=== PATIENT | male | born 1950 | race Caucasian/White ===

== ENCOUNTER 2016-07-14 15:15 | Emergency (ER) | payer MEDICARE, SELFPAY ==
[~2016-07-14 15:15] MED LIST: Sodium Chloride 0.9% 1,000 ML BAG ONE
[2016-07-14] MEDS ORDERED: Ketorolac Tromethamine 30 MG/ML VIAL ONE (16:33)
[2016-07-14] MEDS ORDERED: Ondansetron HCl/PF 4 MG/2 ML Vial ONE (16:33)
[2016-07-14] MEDS ORDERED: Fentanyl 100 MCG/2 ML VIAL ONE (16:33)
[2016-07-14 16:51] LABS: #Basophils 0.2 thou/uL (0.0-0.2); #Eosinphils 0.2 thou/uL (0.0-0.7); #Lymphocytes 2.1 thou/uL (1.20-3.40); #Neutrophils 10.3 thou/uL (1.40-6.50); %Basophils 1.3 % (0.0-1.0); %Eosinophils 1.5 % (0.0-10.0); %Lymphocytes 15.4 % (21.0-51.0); %Monocytes 6.9 % (0.0-10.0); %Neutrophils 74.8 % (42.0-75.0); Hemoglobin 13.5 g/dL (14.0-18.0); Mean Corpuscular HGB CONC 33.6 g/dL (32.0-36.0); Mean Corpuscular Hemoglobin 28.5 pg (27.0-31.0); Mean Corpuscular Volume 84.9 fl (80.0-94.0); Mean Platelet Volume 8.8 fL (7.4-10.4); Platelet Count 227 thou/uL (130-400); RBC Distribution Width 12.6 % (11.5-14.5); Red Blood Cell (RBC) Count 4.74 mill/uL (4.70-6.10); White Blood Cell (WBC) Count 13.8 thou/uL (4.8-10.8)
[2016-07-14 17:01] LABS: CKMB 1.2 ng/mL (0-6.6); Troponin I Less than 0.010 ng/mL (< 0.028)
[2016-07-14 17:08] LABS: Amylase 84 U/L (25-125); Anion Gap 23 mmol/L (10-20); BUN (Urea Nitrogen) 30 mg/dL (8.4-25.7); Calc. Creatinine Clearance 0 mL/min (70-130); Calcium 9.3 mg/dL (7.8-10.44); Carbon Dioxide 19 mmol/L (23-31); Chloride 104 mmol/L (98-107); Estimated GFR-MDRD 31; Lipase 80 U/L (8-78); Potassium 4.5 mmol/L (3.5-5.1); Sodium 141 mmol/L (136-145)
[2016-07-14 17:09] LABS: Glucose 292 mg/dL (80-115)
--- NOTE | 2016-07-14 18:09 | ERRECORD ---
[facility] EMERGENCY RECORD HPI ABDOMINAL PAIN (15:49 RWAG) CHIEF COMPLAINT: Patient presents for evaluation of abdominal pain, Patient presents for evaluation of "after eating, better after vomiting, then returns". HISTORIAN: History provided by patient. LOCATION MALE: Symptoms are localized, most severe in the right lower quadrant. QUALITY: Pain is sharp in nature. SEVERITY: Maximum severity of symptoms moderate, Currently symptoms are moderate, Maximum severity of pain rated as 10/10, Current severity of pain rated as 10/10. TIME COURSE: Sudden onset of symptoms, one hour ago. ASSOCIATED WITH: Associated with nausea, Associated with vomiting. RELIEVED BY: Patient's condition relieved by nothing. EXACERBATED BY: Patient's condition exacerbated by nothing. ROS (15:51 RWAG) CONSTITUTIONAL: Negative constitutional review of systems. EYES: Negative eye review of systems. ENT: Negative ears, nose, throat review of systems. CARDIOVASCULAR: Negative cardiovascular review of systems. RESPIRATORY: Negative respiratory review of systems. GI: Historian reports nausea, reports vomiting. GENITOURINARY MALE: Negative genitourinary review of systems. MUSCULOSKELETAL: Negative musculoskeletal review of systems. SKIN: Negative skin review of systems. NEUROLOGIC: Negative neurologic review of systems. ENDOCRINE: Negative endocrine review of systems. HEMO/LYMPHATIC: Normal hematologic/lymphatic system review. ALLERGIC/IMMUNOLOGIC: Normal allergy/immunologic system review. PSYCHIATRIC: Negative psychiatric review of systems. NOTES: All systems reviewed, negative except as described above. PAST MEDICAL HISTORY (15:46 [facility]) MEDICAL HISTORY: Flu vaccine up to date, Tetanus immunization up to date, Pneumococcal vaccine up to date, Past medical history includes cardiac history, coronary artery disease, arrhythmia, atrial fibrillation, Past medical history includes history of diabetes, Type II, Past medical history includes history of hypertension. kidney disease. MALE SURGICAL HISTORY: heart ablation left knee eye lasik bilateral, Surgical history of tonsillectomy. PSYCHIATRIC HISTORY: No previous psychiatric history. SOCIAL HISTORY: Lives at home, with family, Patient has no smoking history, Patient drinks socially, rarely, Patient denies drug use. &a-1R&a+25V*p+0X*q8980T*c202B*c15G*c2P*p-0X&a-25V&a+1R Name: Hayden Baptiste : 1950 M65 MedRec: [id number] AcctNum: [id number] Prepared: Hanane Jul 30, 2016 06:15 by Interface Page 1 of 4 pMD [facility] EMERGENCY RECORD KNOWN ALLERGIES acetaminophen (Unconfirmed): Reaction: Rash cinnamon Tylenol CURRENT MEDICATIONS lisinopril-hydrochlorothiazide: TABLET : Strength - 20 mg-12.5 mg : ORAL Patient Dose: 1 tab(s) Oral once a day. (15:42 CJEF) TRUJEO- DM MEDICATION: Patient Dose: 24 units Subcutaneous once a day. (15:43 CJEF) atorvastatin: TABLET : Strength - 40 mg : ORAL Patient Dose: 40 mg Oral once a day. (15:44 CJEF) aspirin: TABLET : Strength - 81 mg : ORAL Patient Dose: 325 mg Oral once a day. (15:44 CJEF) NIFEdipine: TABLET, EXTENDED RELEASE : Strength - 60 mg : ORAL Patient Dose: 60 mg Oral once a day. (15:45 CJEF) VITAL SIGNS VITAL SIGNS: BP: 181/75, Pulse: 86, Resp: 18, Temp: 97.3 (Oral), Pain: 10, O2 sat: 99 on Room Air, Time: 07/14/2016 15:39. (15:39 CJEF) BP: 141/109, Pulse: 79, Resp: 18, O2 sat: 98 on Room Air, Time: 07/14/2016 16:38. (16:38 CJEF) BP: 183/72, Pulse: 73, Resp: 18, Pain: 6, O2 sat: 97 on Room Air, Time: 07/14/2016 16:49. (16:49 CJEF) BP: 179/82, Pulse: 73, Resp: 15, Pain: 5, O2 sat: 94 on Room Air, Time: 07/14/2016 17:35. (17:35 CJEF) BP: 180/77, Pulse: 72, Resp: 15, Temp: 97.9 (Oral), Pain: 5, O2 sat: 93 on Room Air, Time: 07/14/2016 17:54. (17:54 CJEF) PHYSICAL EXAM (15:51 RWAG) CONSTITUTIONAL: Vital Signs Reviewed, Blood pressure, hypertensive. HEAD: Head exam normal. EYES: Eye exam normal. ENT: ENT exam normal. NECK: Neck exam normal. RESPIRATORY CHEST: Respiratory and chest exam normal. CARDIOVASCULAR: Cardiovascular assessment normal. ABDOMEN MALE: Abdominal exam normal. BACK: Back exam normal. UPPER EXTREMITY: Upper extremity exam normal. LOWER EXTREMITY: Lower extremity exam normal. NEURO: Neuro exam normal. SKIN: Skin exam normal. LYMPHATIC: Lymphatic exam normal. &a-1R&a+25V*p+0X*a7242B*c202B*c15G*c2P*p-0X&a-25V&a+1R Name: Hayden Baptiste : 1950 M65 MedRec: [id number] AcctNum: [id number] Prepared: Hanane Jul 30, 2016 06:15 by Interface Page 2 of 4 pMD [facility] EMERGENCY RECORD PSYCHIATRIC: Psychiatric exam normal. EKG INTERPRETATION (16:54 RWAG) 12 LEAD EKG INTERPRETATION: 12 lead EKG interpreted by Emergency Department Physician at time of study, 12 lead EKG shows normal sinus rhythm, Rate (beats per minute): 78, with no ectopics, No previous EKG available for comparison, Interpretation: normal EKG, T waves normal, [place] normal, Clinical impression: Normal EKG. RADIOLOGYINTERPRETATION (17:14 RWAG) ABDOMEN: Abdomen/pelvis CT scan, with contrast negative, no abdominal aortic aneurysm, no appendicitis, no diverticulitis, no kidney stones, no injuries, no mass, no obstruction, no free air, no hydronephrosis, solomon. small renal cysts. MEDICATION ADMINISTRATION SUMMARY Drug Name: sodium chloride 0.9 % intravenous, Dose Ordered: 1 L, Route: IV Fluid Infusion, Status: Given, Time: 17:15 07/14/2016, Drug Name: fentaNYL (PF) injection, Dose Ordered: 100 mcg, Route: IV Push, Status: Given, Time: 16:48 07/14/2016, Drug Name: ketorolac injection, Dose Ordered: 30 mg, Route: IV Push, Status: Given, Time: 16:48 07/14/2016, Drug Name: ondansetron HCl intravenous, Dose Ordered: 8 mg, Route: IV Push, Status: Given, Time: 16:48 07/14/2016, Detailed record available in Medication Service section. PROBLEM LIST No recorded problems DIAGNOSIS (17:17 RWAG) FINAL: PRIMARY: Abdominal Pain, ADDITIONAL: Nausea with vomiting. PRESCRIPTION Zofran ODT: TABLET,DISINTEGRATING : 8 mg : ORAL : Quantity: 1 Unit: tab(s) Route: ORAL Schedule: every 8 hours PRN Dispense: 12 Unit: tab(s) May substitute. Refills: No Refills . (17:16 RWAG) NOTES: No Refills. (17:16 RWAG) Ultram: TABLET : 50 mg : ORAL : Quantity: 2 Unit: tab(s) Route: ORAL Schedule: every 6 hours PRN Dispense: 20 Unit: tab(s) May substitute. Refills: No Refills . (17:17 RWAG) NOTES: No Refills. (17:17 RWAG) DISPOSITION PATIENT: Disposition Type: Discharge, Disposition: *Discharge Home, Disposition Transport: Car, Condition: Improved. (17:17 RWAG) Patient left the department. (18:01 CJEF) &a-1R&a+25V*p+0X*w1114S*c202B*c15G*c2P*p-0X&a-25V&a+1R Name: Hayden Baptiste : 1950 M65 MedRec: [id number] AcctNum: [id number] Prepared: Hanane Jul 30, 2016 06:15 by Interface Page 3 of 4 pMD [facility] EMERGENCY RECORD [place]: CJEF=KLEBER Pate, Cady RWAG=MD Chao, [place]ug[place] &a-1R&a+25V*p+0X*b5427E*c202B*c15G*c2P*p-0X&a-25V&a+1R Name: Hayden Baptiste : 1950 M65 MedRec: [id number] AcctNum: [id number] Prepared: Hanane Jul 30, 2016 06:15 by Interface Page 4 of 4 pMD MTDD
--- NOTE | 2016-07-14 18:15 | PICIS ---
[facility] EMERGENCY RECORD TRIAGE (15:41 CJEF) TRIAGE NOTES: PT REPORTS THAT HE FINISHED EATING AND STARTED HAVING CRAMPING TO THE RIGHT ABD AND STARTED VOMITING. PT REPORTS THAT HE HAS BEEN VOMITING SINCE THEN. PT REPORTS THAT HIS PAIN IS STARTING TO GET BETTER. STATES THAT THE ONLY DIFFERENCE IN FOOD FROM THE NON-SICK , WAS TARTAR SAUCE AND PT STATES THAT HE IS VOMITING WHITE. (15:41 CJEF) PATIENT: NAME: Hayden Baptiste, AGE: 65, GENDER: male, : Sun 1950, TIME OF GREET: SunJul 14, 2016 15:16, PREFERRED LANGUAGE: Irish, ETHNICITY: Not or , ECODE BILLING MAP: [facility], SSN: [id number], Zip Code: [address], KG WEIGHT: [phone], PHONE: , , , PERSON ID: [id number], PCP: Melina ROMO RANY. (15:41 CJEF) COMPLAINT: R SIDE PAIN,VOMITING. (15:41 CJEF) ADMISSION: URGENCY: 3 Urgent, ADMISSION SOURCE: Home, TRANSPORT: Walk-in, BED: TRIAGE. (15:41 CJEF) ASSESSMENT: Assessment: RIGHT SIDE ABD PAIN WITH VOMITIING. (15:46 CJEF) PAIN: Patient complains of pain described as, Location RT ABDOMEN. (15:46 CJEF) IMMUNIZATIONS: Flu vaccine up to date, Tetanus immunization up to date, Pneumococcal vaccine up to date. (15:46 CJEF) SIRS SCORING: Heart Rate 55-109 (0), Temp range 96.8-101.1 (0), respiratory rate 12-24 (0), Mental Status altered: no (0), Infection or Suspected Infection: No. (15:46 CJEF) TRIAGE SCREENING: Patient denies suicidal ideation, Patient denies presence of domestic violence. (15:46 CJEF) PROVIDERS: TRIAGE NURSE: Cady Pate RN. (15:41 CJEF) VITAL SIGNS: BP 181/75, Pulse 86, Resp 18, Temp 97.3, (Oral), Pain 10, O2 Sat 99, on Room Air, Time 07/14/2016 15:39. (15:39 CJEF) PREVIOUS VISIT ALLERGIES: TYLENOL. (15:41 CJEF) TYLENOL. (15:46 CJEF) KNOWN ALLERGIES acetaminophen (Unconfirmed): Reaction: Rash cinnamon Tylenol CURRENT MEDICATIONS lisinopril-hydrochlorothiazide: TABLET : Strength - 20 mg-12.5 mg : ORAL Patient Dose: 1 tab(s) Oral once a day. (15:42 CJEF) TRUJEO- DM MEDICATION: Patient Dose: 24 units Subcutaneous once a day. (15:43 CJEF) atorvastatin: TABLET : Strength - 40 mg : ORAL Patient Dose: 40 mg Oral once a day. (15:44 CJEF) aspirin: &a-1R&a+25V*p+0X*u2328U*c202B*c15G*c2P*p-0X&a-25V&a+1R Name: Hayden Baptiste : 1950 M65 MedRec: [id number] AcctNum: [id number] Prepared: Hanane Jul 30, 2016 06:21 by Interface Page 1 of 12 pMD [facility] EMERGENCY RECORD TABLET : Strength - 81 mg : ORAL Patient Dose: 325 mg Oral once a day. (15:44 CJEF) NIFEdipine: TABLET, EXTENDED RELEASE : Strength - 60 mg : ORAL Patient Dose: 60 mg Oral once a day. (15:45 CJEF) VITAL SIGNS VITAL SIGNS: BP: 181/75, Pulse: 86, Resp: 18, Temp: 97.3 (Oral), Pain: 10, O2 sat: 99 on Room Air, Time: 07/14/2016 15:39. (15:39 CJEF) BP: 141/109, Pulse: 79, Resp: 18, O2 sat: 98 on Room Air, Time: 07/14/2016 16:38. (16:38 CJEF) BP: 183/72, Pulse: 73, Resp: 18, Pain: 6, O2 sat: 97 on Room Air, Time: 07/14/2016 16:49. (16:49 CJEF) BP: 179/82, Pulse: 73, Resp: 15, Pain: 5, O2 sat: 94 on Room Air, Time: 07/14/2016 17:35. (17:35 CJEF) BP: 180/77, Pulse: 72, Resp: 15, Temp: 97.9 (Oral), Pain: 5, O2 sat: 93 on Room Air, Time: 07/14/2016 17:54. (17:54 CJEF) NURSING ASSESSMENT: ABDOMEN (15:50 CJEF) CONSTITUTIONAL: Complex assessment performed, Patient arrives ambulatory, Gait steady, History obtained from patient, Patient appears, generally ill, Patient cooperative, Patient alert, Oriented to person, place and time, Skin warm, Skin dry, Skin normal in color, Mucous membranes pink, Mucous membranes moist, Patient is well-groomed, PT REPORTS THAT HE FINISHED EATING AND STARTED HAVING CRAMPING TO THE RIGHT ABD AND STARTED VOMITING. PT REPORTS THAT HE HAS BEEN VOMITING SINCE THEN. PT REPORTS THAT HIS PAIN IS STARTING TO GET BETTER. STATES THAT THE ONLY DIFFERENCE IN FOOD FROM THE NON-SICK , WAS TARTAR SAUCE AND PT STATES THAT HE IS VOMITING WHITE. PAIN: aching pain, to the right upper quadrant, to the right lower quadrant, on a scale 0-10 patient rates pain as 10. ABDOMEN: Abdomen assessment findings include abdomen symmetrical, Abdomen soft, tender, to the right upper quadrant, to the right lower quadrant, Bowel sound normal, Associated with nausea, Associated with vomiting, currently. NOTES: Patient tolerated procedure well. SAFETY: Side rails up, Cart/Stretcher in lowest position, Family at bedside, Call light within reach, Hospital ID band on. NURSING ASSESSMENT: FALL RISK (15:59 CJEF) FALL RISK: Total score 0, No risk for fall. [place] II FALL RISK: Able to rise in a single movement; no loss of balance with steps(0), Total score 0, Score less than 5. Patient not high risk for falls. NURSING ASSESSMENT: SKIN (15:59 CJEF) SKIN: Skin assessment findings include skin warm, Skin dry, Skin &a-1R&a+25V*p+0X*o7482J*c202B*c15G*c2P*p-0X&a-25V&a+1R Name: Hayden Baptiste : 1950 M65 MedRec: [id number] AcctNum: [id number] Prepared: Hanane Jul 30, 2016 06:21 by Interface Page 2 of 12 pMD [facility] EMERGENCY RECORD normal in color. СВЕТЛАНА SCALE: (4) Sensory perception has no impairment, (4) Skin is rarely moist, (4) Patient walks frequently, (4) No mobility limitations, (3) Adequate nutrition, (3) Patient has no apparent problem moving. NOTES: Patient tolerated procedure well. SAFETY: Side rails up, Cart/Stretcher in lowest position, Family at bedside, Call light within reach, Hospital ID band on. NURSING PROCEDURE: BEDSIDE SIRS TESTING (17:06 CJEF) SCORES: Heart Rate 55-109 (0), Temp range 96.8-101.1 (0), respiratory rate 12-24 (0), Latest WBC 3-14.9 (0), Mental Status altered: no (0), Yes, Infection or Suspected Infection. SIRS: Yes, Infection or Suspected Infection. NURSING PROCEDURE: CUSTOMER SUCCESS INTERN (16:25 CJEF) PATIENT IDENTIFIER: Patient actively involved in identification process, Patient's identity verified by patient stating name, Patient's identity verified by patient stating date. CUSTOMER SUCCESS INTERN: Cardiac monitoring indicated for N/V, Patient placed on director of cardiac cath lab, Heart rate: 79, showing normal sinus rhythm, Patient placed on non-invasive blood pressure monitor, Patient placed on continuous pulse oximetry, Adult/pediatric oxisensor applied. FOLLOW-UP: After procedure, alarms set and on, After procedure, patient tolerating monitoring. NOTES: Patient tolerated procedure well. SAFETY: Side rails up, Cart/Stretcher in lowest position, Family at bedside, Call light within reach, Hospital ID band on. NURSING PROCEDURE: DISCHARGE NOTE (18:00 CJEF) DISCHARGE: Patient discharged to home, ambulating without assistance, family driving, accompanied by //partner, Summary of Care printed/ provided, Patient requested and was provided an electronic copy of Discharge Instructions, Transition record given to patient, Discharge instructions given to patient, Discharge instructions given to , Simple or moderate discharge teaching performed, Prescriptions given and instructions on side effects given, Medication reconciliation form given, Above person(s) verbalized understanding of discharge instructions and follow-up care, Patient treated and evaluated by physician. BELONGINGS: Belongings remain with patient. NOTES: Patient tolerated procedure well. SAFETY: Side rails up, Cart/Stretcher in lowest position, Family at bedside, Call light within reach, Hospital ID band on. NURSING PROCEDURE: EKG CHART (16:35 CJEF) PATIENT IDENTIFIER: Patient actively involved in identification process, Patient's identity verified by patient stating name, Patient's identity verified by patient stating date. &a-1R&a+25V*p+0X*u9594D*c202B*c15G*c2P*p-0X&a-25V&a+1R Name: Hayden Baptiste : 1950 M65 MedRec: [id number] AcctNum: [id number] Prepared: Hanane Jul 30, 2016 06:21 by Interface Page 3 of 12 pMD [facility] EMERGENCY RECORD EKG: EKG indicated for N/V, 12 lead EKG performed on the left chest, done by MISBAH SHAHID, first EKG. FOLLOW-UP: After procedure, EKG for interpretation given to Dr. GUIDRY. NOTES: Patient tolerated procedure well. SAFETY: Side rails up, Cart/Stretcher in lowest position, Family at bedside, Call light within reach, Hospital ID band on. NURSING PROCEDURE: IV PATIENT IDENITIFIER: Patient actively involved in identification process, Patient's identity verified by patient stating name, Patient's identity verified by patient stating date. (16:35 CJEF) IV SITE 1: IV therapy indicated for hydration, IV therapy indicated for medication administration, IV established, to the left antecubital, using an 18 gauge catheter, in one attempt, IV site prepped with CHLORAPREP, Saline lock established, Flushed with normal saline (mls): 10, Labs drawn at time of placement, labeled in the presence of the patient and sent to lab. (16:35 CJEF) FOLLOW-UP SITE 1: After procedure, sterile transparent dressing applied. (16:35 CJEF) After procedure, 2x2 dressing applied, IV discontinued, due to patient being discharged, catheter intact. (17:55 CJEF) NOTES: Patient tolerated procedure well. (16:35 CJEF) SAFETY: Side rails up, Cart/Stretcher in lowest position, Family at bedside, Call light within reach, Hospital ID band on. (16:35 CJEF) NURSING PROCEDURE: NURSE NOTES NURSES NOTES: Patient in no apparent distress, Patient resting quietly, Notes: PT RESTING IN BED QUIETLY WITH FAMILY AT BEDSIDE. NO DISTRESS NOTED. (16:37 CJEF) Patient in no apparent distress, Patient resting quietly, Notes: PT RESTING IN BED QUIETLY WITH FAMILY AT BEDSIDE. NO DISTRESS NOTED. (17:34 [facility]) Notes: PT WAS UNABLE TO PROVIDE URINE SAMPLE. (18:01 [facility]) NURSING PROCEDURE: TRANSPORT TO TESTS (15:55 [facility]) PATIENT IDENTIFIER: Patient actively involved in identification process, Patient's identity verified by patient stating name, Patient's identity verified by patient stating date. TRANSPORT TO TESTS: Transport indicated to facilitate diagnosis, Patient transported to CT scan, via cart, Accompanied by x-ray security systems technician. NOTES: Patient tolerated procedure well. SAFETY: Side rails up, Cart/Stretcher in lowest position, Family at bedside, Call light within reach, Hospital ID band on. ORDER DETAILS &a-1R&a+25V*p+0X*z8525H*c202B*c15G*c2P*p-0X&a-25V&a+1R Name: Hayden Baptiste : 1950 M65 MedRec: [id number] AcctNum: [id number] Prepared: Hanane Jul 30, 2016 06:21 by Interface Page 4 of 12 pMD [facility] EMERGENCY RECORD Order Name: Amylase, Status: Active, Time: 15:43 07/14/2016, User: ANDRE, - Ordered for: MD Guidry Richard, - Entered by: MD Guidry Richard - Sonu Jul 14, 2016 15:43, - Quantity: 1, Order Name: Basic Metabolic Panel, Status: Active, Time: 15:43 07/14/2016, User: ANDRE, - Ordered for: MD Guidry Richard, - Entered by: MD Guidry Richard - Sonu Jul 14, 2016 15:43, - Quantity: 1, Order Name: CUSTOMER SUCCESS INTERN ED, Status: Done, Time: 16:37 07/14/2016, User: FLO, - Ordered for: MD Guidry Richard, - Entered by: KLEBER Pate Cassie - Sonu Jul 14, 2016 16:37, - Quantity: 1, Order Name: Cardiac Profile w/CKMB & Troponin - I, Status: Active, Time: 15:43 07/14/2016, User: ANDRE, - Ordered for: MD Guidry Richard, - Entered by: MD Guidry Richard - SunJul 14, 2016 15:43, - Quantity: 1, Order Name: CBC with Differential, Status: Active, Time: 15:43 07/14/2016, User: ANDRE, - Ordered for: MD Guidry Richard, - Entered by: MD Guidry Richard - SunJul 14, 2016 15:43, - Quantity: 1, Order Name: CT Abdomen Pelvis WO Con, Status: Active, Time: 15:43 07/14/2016, User: ANDRE, - Ordered for: MD Guidry Richard, - Entered by: MD Guidry Richard - SunJul 14, 2016 15:43, - Quantity: 1, Order Name: EKG 12 Lead in Emergency Room, Status: Active, Time: 15:43 07/14/2016, User: ANDRE, - Ordered for: MD Guidry Richard, - Entered by: MD Guidry Richard - SunJul 14, 2016 15:43, - Quantity: 1, Order Name: Lipase, Status: Active, Time: 15:43 07/14/2016, User: ANDRE, - Ordered for: MD Guidry Richard, - Entered by: MD Guidry Richard - SunJul 14, 2016 15:43, - Quantity: 1, Order Name: SALINE LOCK, Status: Done, Time: 16:36 07/14/2016, User: FLO, - Ordered for: MD Guidry Richard, - Entered by: MD Guidry Richard - SunJul 14, 2016 15:43, - Quantity: 1, Order Name: Urinalysis w/ Rflx Microscopic, Status: Canceled, Time: 18:01 07/14/2016, User: FLO, - Ordered for: MD Guidry Richard, - Entered by: MD Guidry Richard - SunJul 14, 2016 15:43, - Quantity: 1. &a-1R&a+25V*p+0X*u0210S*c202B*c15G*c2P*p-0X&a-25V&a+1R Name: Hayden Baptiste : 1950 M65 MedRec: [id number] AcctNum: [id number] Prepared: Hanane Jul 30, 2016 06:21 by Interface Page 5 of 12 pMD [facility] EMERGENCY RECORD MEDICATION ADMINISTRATION SUMMARY Drug Name: sodium chloride 0.9 % intravenous, Dose Ordered: 1 L, Route: IV Fluid Infusion, Status: Given, Time: 17:15 07/14/2016, Drug Name: fentaNYL (PF) injection, Dose Ordered: 100 mcg, Route: IV Push, Status: Given, Time: 16:48 07/14/2016, Drug Name: ketorolac injection, Dose Ordered: 30 mg, Route: IV Push, Status: Given, Time: 16:48 07/14/2016, Drug Name: ondansetron HCl intravenous, Dose Ordered: 8 mg, Route: IV Push, Status: Given, Time: 16:48 07/14/2016, Detailed record available in Medication Service section. MEDICATION SERVICE fentaNYL (PF) injection: Order: fentaNYL (PF) injection (fentanyl citrate/preservative free) - Dose: 100 mcg : IV Push Schedule: Now Ordered by: Refugio Guidry MD Entered by: Refugio Guidry MD SunJul 14, 2016 15:44 , Acknowledged by: Carlyn Craig RN SunJul 14, 2016 16:31 Documented as given by: Cady Pate RN SunJul 14, 2016 16:48 Patient, Medication, Dose, Route and Time verified prior to administration. Amount given: 100MCG, IV SITE #1 IVP, subsequent different medication, Slowly, Awake and alert- acceptable, Connections checked prior to administration, Line traced prior to administration, Catheter placement confirmed via flush prior to administration, IV site without signs or symptoms of infiltration during medication administration, No swelling during administration, No drainage during administration, IV flushed after administration, Correct patient, time, route, dose and medication confirmed prior to administration, Patient advised of actions and side-effects prior to administration, Allergies confirmed and medications reviewed prior to administration, Patient tolerated procedure well, Patient in position of comfort, Side rails up, Cart in lowest position, Family at bedside. : Follow Up : Response assessment performed, No signs or symptoms of allergic reaction noted, Decreased pain, Advised not to ambulate without assistance, Patient in position of comfort, Side rails up, Cart in lowest position, Family at bedside. (17:34 [facility]) ketorolac injection: Order: ketorolac injection (ketorolac tromethamine) - Dose: 30 mg : IV Push Schedule: Now Ordered by: Refugio Guidry MD Entered by: Refugio Guidry MD SunJul 14, 2016 15:44 , Acknowledged by: Carlyn Craig RN SunJul 14, 2016 16:31 Documented as given by: Cady Pate RN SunJul 14, 2016 16:48 Patient, Medication, Dose, Route and Time verified prior to administration. &a-1R&a+25V*p+0X*q1102V*c202B*c15G*c2P*p-0X&a-25V&a+1R Name: Hayden Baptiste : 1950 M65 MedRec: [id number] AcctNum: [id number] Prepared: Hanane Jul 30, 2016 06:21 by Interface Page 6 of 12 pMD [facility] EMERGENCY RECORD Amount given: 30MG, IV SITE #1 IVP, subsequent different medication, Slowly, Awake and alert- acceptable, Connections checked prior to administration, Line traced prior to administration, Catheter placement confirmed via flush prior to administration, IV site without signs or symptoms of infiltration during medication administration, No swelling during administration, No drainage during administration, IV flushed after administration, Correct patient, time, route, dose and medication confirmed prior to administration, Patient advised of actions and side-effects prior to administration, Allergies confirmed and medications reviewed prior to administration, Patient tolerated procedure well, Patient in position of comfort, Side rails up, Cart in lowest position, Family at bedside. : Follow Up : Response assessment performed, No signs or symptoms of allergic reaction noted, Advised not to ambulate without assistance, Patient in position of comfort, Side rails up, Cart in lowest position, Family at bedside. (17:34 [facility]) ondansetron HCl intravenous: Order: ondansetron HCl intravenous (ondansetron HCl) - Dose: 8 mg : IV Push Schedule: Now Ordered by: Refugio Guidry MD Entered by: Refugio Guidry MD SunJul 14, 2016 15:45 , Acknowledged by: Carlyn Craig RN SunJul 14, 2016 16:31 Documented as given by: Cady Pate RN SunJul 14, 2016 16:48 Patient, Medication, Dose, Route and Time verified prior to administration. Amount given: 8MG, IV SITE #1 IVP, initial medication, Slowly, Awake and alert- acceptable, Connections checked prior to administration, Line traced prior to administration, Catheter placement confirmed via flush prior to administration, IV site without signs or symptoms of infiltration during medication administration, No swelling during administration, No drainage during administration, IV flushed after administration, Correct patient, time, route, dose and medication confirmed prior to administration, Patient advised of actions and side-effects prior to administration, Allergies confirmed and medications reviewed prior to administration, Patient tolerated procedure well, Patient in position of comfort, Side rails up, Cart in lowest position, Family at bedside. : Follow Up : Response assessment performed, No signs or symptoms of allergic reaction noted, Decreased vomiting, Decreased nausea, Advised not to ambulate without assistance, Patient in position of comfort, Side rails up, Cart in lowest position, Family at bedside. (17:35 [facility]) sodium chloride 0.9 % intravenous: Order: sodium chloride 0.9 % intravenous (0.9 % sodium chloride) - Dose: 1 L : IV Fluid Infusion Schedule: Now Ordered by: Refugio Guidry MD Entered by: Refugio Guidry MD SunJul 14, 2016 17:11 , Acknowledged by: Carlyn Craig RN SunJul 14, 2016 17:15 Documented as given by: Cady Pate RN SunJul 14, 2016 17:15 &a-1R&a+25V*p+0X*b6711G*c202B*c15G*c2P*p-0X&a-25V&a+1R Name: Hayden Baptiste : 1950 M65 MedRec: [id number] AcctNum: [id number] Prepared: Hanane Jul 30, 2016 06:21 by Interface Page 7 of 12 pMD [facility] EMERGENCY RECORD Patient, Medication, Dose, Route and Time verified prior to administration. Amount given: 1 L, IV SITE #1 IV fluids established for hydration, IV SITE #1 into left antecubital, IV SITE #1 1st bag hung, IV SITE #1 bolus of 1000 ml established, via primary tubing, Awake and alert- acceptable, Connections checked prior to administration, Line traced prior to administration, Catheter placement confirmed via flush prior to administration, IV site without signs or symptoms of infiltration during medication administration, No swelling during administration, No drainage during administration, IV flushed after administration, Correct patient, time, route, dose and medication confirmed prior to administration, Patient advised of actions and side-effects prior to administration, Allergies confirmed and medications reviewed prior to administration, Patient tolerated procedure well, Patient in position of comfort, Side rails up, Cart in lowest position, Family at bedside. : Follow Up : Response assessment performed, No signs or symptoms of allergic reaction noted, _IV SITE #1:_, IV fluid infusion discontinued, on SunJul 14, 2016 17:54, 40 minutes, ., Total amount infused: 1 L, Advised not to ambulate without assistance, Patient in position of comfort, Side rails up, Cart in lowest position, Family at bedside. (17:54 [facility]) HPI ABDOMINAL PAIN (15:49 RW) CHIEF COMPLAINT: Patient presents for evaluation of abdominal pain, Patient presents for evaluation of "after eating, better after vomiting, then returns". HISTORIAN: History provided by patient. LOCATION MALE: Symptoms are localized, most severe in the right lower quadrant. QUALITY: Pain is sharp in nature. SEVERITY: Maximum severity of symptoms moderate, Currently symptoms are moderate, Maximum severity of pain rated as 10/10, Current severity of pain rated as 10/10. TIME COURSE: Sudden onset of symptoms, one hour ago. ASSOCIATED WITH: Associated with nausea, Associated with vomiting. RELIEVED BY: Patient's condition relieved by nothing. EXACERBATED BY: Patient's condition exacerbated by nothing. ROS (15:51 RW) CONSTITUTIONAL: Negative constitutional review of systems. EYES: Negative eye review of systems. ENT: Negative ears, nose, throat review of systems. CARDIOVASCULAR: Negative cardiovascular review of systems. RESPIRATORY: Negative respiratory review of systems. GI: Historian reports nausea, reports vomiting. GENITOURINARY MALE: Negative genitourinary review of systems. MUSCULOSKELETAL: Negative musculoskeletal review of systems. &a-1R&a+25V*p+0X*o9985X*c202B*c15G*c2P*p-0X&a-25V&a+1R Name: Hayden Baptiste : 1950 M65 MedRec: [id number] AcctNum: [id number] Prepared: Hanane Jul 30, 2016 06:21 by Interface Page 8 of 12 pMD [facility] EMERGENCY RECORD SKIN: Negative skin review of systems. NEUROLOGIC: Negative neurologic review of systems. ENDOCRINE: Negative endocrine review of systems. HEMO/LYMPHATIC: Normal hematologic/lymphatic system review. ALLERGIC/IMMUNOLOGIC: Normal allergy/immunologic system review. PSYCHIATRIC: Negative psychiatric review of systems. NOTES: All systems reviewed, negative except as described above. PAST MEDICAL HISTORY (15:46 CJ) MEDICAL HISTORY: Flu vaccine up to date, Tetanus immunization up to date, Pneumococcal vaccine up to date, Past medical history includes cardiac history, coronary artery disease, arrhythmia, atrial fibrillation, Past medical history includes history of diabetes, Type II, Past medical history includes history of hypertension. kidney disease. MALE SURGICAL HISTORY: heart ablation left knee eye lasik bilateral, Surgical history of tonsillectomy. PSYCHIATRIC HISTORY: No previous psychiatric history. SOCIAL HISTORY: Lives at home, with family, Patient has no smoking history, Patient drinks socially, rarely, Patient denies drug use. PHYSICAL EXAM (15:51 RW) CONSTITUTIONAL: Vital Signs Reviewed, Blood pressure, hypertensive. HEAD: Head exam normal. EYES: Eye exam normal. ENT: ENT exam normal. NECK: Neck exam normal. RESPIRATORY CHEST: Respiratory and chest exam normal. CARDIOVASCULAR: Cardiovascular assessment normal. ABDOMEN MALE: Abdominal exam normal. BACK: Back exam normal. UPPER EXTREMITY: Upper extremity exam normal. LOWER EXTREMITY: Lower extremity exam normal. NEURO: Neuro exam normal. SKIN: Skin exam normal. LYMPHATIC: Lymphatic exam normal. PSYCHIATRIC: Psychiatric exam normal. EVENTS TRANSFER: Triage to Emergency Triage. (SunJul 14, 2016 15:41 CJ) Emergency Triage to Main ED -04. (15:47 CJ) Emergency Main ED -04 to -05. (16:43 CJ) Removed from Emergency Main ED -05. (18:01 [facility]) RADIOLOGYINTERPRETATION (17:14 RW) ABDOMEN: Abdomen/pelvis CT scan, with contrast negative, no &a-1R&a+25V*p+0X*s1634K*c202B*c15G*c2P*p-0X&a-25V&a+1R Name: Hayden Baptiste : 1950 M65 MedRec: [id number] AcctNum: [id number] Prepared: Hanane Jul 30, 2016 06:21 by Interface Page 9 of 12 pMD [facility] EMERGENCY RECORD abdominal aortic aneurysm, no appendicitis, no diverticulitis, no kidney stones, no injuries, no mass, no obstruction, no free air, no hydronephrosis, solomon. small renal cysts. EKG INTERPRETATION (16:54 RWAG) 12 LEAD EKG INTERPRETATION: 12 lead EKG interpreted by Emergency Department Physician at time of study, 12 lead EKG shows normal sinus rhythm, Rate (beats per minute): 78, with no ectopics, No previous EKG available for comparison, Interpretation: normal EKG, T waves normal, [place] normal, Clinical impression: Normal EKG. PROBLEM LIST No recorded problems DIAGNOSIS (17:17 RWAG) FINAL: PRIMARY: Abdominal Pain, ADDITIONAL: Nausea with vomiting. DISPOSITION PATIENT: Disposition Type: Discharge, Disposition: *Discharge Home, Disposition Transport: Car, Condition: Improved. (17:17 RWAG) Patient left the department. (18:01 [facility]) INSTRUCTION (17:18 RWAG) DISCHARGE: ABDOMINAL PAIN, UNKOWN CAUSE, (MALE), VOMITING (8Y-ADULT). FOLLOWUP: Melina ROMO, [facility], [address] , [facility] [address], [phone], Follow up with Primary Care Physician in 2-3 days. SPECIAL: Follow-up with your PCP. PRESCRIPTION Zofran ODT: TABLET,DISINTEGRATING : 8 mg : ORAL : Quantity: 1 Unit: tab(s) Route: ORAL Schedule: every 8 hours PRN Dispense: 12 Unit: tab(s) May substitute. Refills: No Refills . (17:16 RW) NOTES: No Refills. (17:16 RWAG) Ultram: TABLET : 50 mg : ORAL : Quantity: 2 Unit: tab(s) Route: ORAL Schedule: every 6 hours PRN Dispense: 20 Unit: tab(s) May substitute. Refills: No Refills . (17:17 RWAG) NOTES: No Refills. (17:17 RWAG) IMAGING EKG: Image captured from scanner. (17:13 AWAT) *DISCHARGE INSTRUCTIONS RECEIPT: Image captured from scanner. (18:02 [facility]) Page 2 added. Image captured from scanner. (18:02 [facility]) *SUPPLY CHARGE SHEET: Image captured from scanner. (18:02 [facility]) &a-1R&a+25V*p+0X*f0690W*c202B*c15G*c2P*p-0X&a-25V&a+1R Name: Hayden Baptiste : 1950 M65 MedRec: [id number] AcctNum: [id number] Prepared: Hanane Jul 30, 2016 06:21 by Interface Page 10 of 12 pMD [facility] EMERGENCY RECORD ADMIN ([place] Jul 30, 2016 06:06 [facility]) DIGITAL SIGNATURE: MD Guidry Richard. RESULTS LABORATORY: CBC with Differential Collection DT: SunJul 14, 2016 16:43, *White Blood Cell (WBC) Count 13.8 - H thou/uL, Range (4.8-10.8), Red Blood Cell (RBC) Count 4.74 mill/uL, Range (4.70-6.10), *Hemoglobin 13.5 - L g/dL, Range (14.0-18.0), *Hematocrit 40.2 - L %, Range (42.0-52.0), Mean Corpuscular Volume 84.9 fl, Range (80.0-94.0), Mean Corpuscular Hemoglobin 28.5 pg, Range (27.0-31.0), Mean Corpuscular HGB CONC 33.6 g/dL, Range (32.0-36.0), RBC Distribution Width 12.6 %, Range (11.5-14.5), Platelet Count 227 thou/uL, Range (130-400), Mean Platelet Volume 8.8 fL, Range (7.4-10.4), %Neutrophils 74.8 %, Range (42.0-75.0), *%Lymphocytes 15.4 - L %, Range (21.0-51.0), %Monocytes 6.9 %, Range (0.0-10.0), %Eosinophils 1.5 %, Range (0.0-10.0), *%Basophils 1.3 - H %, Range (0.0-1.0), *#Neutrophils 10.3 - H thou/uL, Range (1.40-6.50), #Lymphocytes 2.1 thou/uL, Range (1.20-3.40), *#Monocytes 1.0 - H thou/uL, Range (0.11-0.59), #Eosinphils 0.2 thou/uL, Range (0.0-0.7), #Basophils 0.2 thou/uL, Range (0.0-0.2). (16:54 RWAG) Cardiac Profile w/CKMB & TropI Collection DT: SunJul 14, 2016 16:43, CKMB 1.2 ng/mL, Range (0-6.6), Troponin I Less than 0.010 ng/mL, Range (< 0.028), Reference Range , 0.00 - 0.028 ng/mL Negative 0.029 - 0.29 ng/mL , Indeterminate Greater or Equal to 0.3 ng/mL Strongly suggests OK , . (17:05 [facility]) Lipase Collection DT: SunJul 14, 2016 16:43, *Lipase 80 - H U/L, Range (8-78). (17:10 RWAG) Amylase Collection DT: SunJul 14, 2016 16:43, Amylase 84 U/L, Range (25-125). (17:10 RW) Basic Metabolic Panel Collection DT: SunJul 14, 2016 16:43, Sodium 141 mmol/L, Range (136-145), Potassium 4.5 mmol/L, Range (3.5-5.1), Chloride 104 mmol/L, Range (98-107), *Carbon Dioxide 19 - L mmol/L, Range (23-31), *Anion Gap 23 - H mmol/L, Range (10-20), *BUN (Urea Nitrogen) 30 - H mg/dL, Range (8.4-25.7), *Creatinine 2.14 - H mg/dL, Range (0.7-1.3), Estimated GFR-MDRD 31 , Reference Range for Estimated GFR: Greater than 90, mL/min/1.73 m2 &a-1R&a+25V*p+0X*v0235D*c202B*c15G*c2P*p-0X&a-25V&a+1R Name: Hayden Baptiste : 1950 M65 MedRec: [id number] AcctNum: [id number] Prepared: Hanane Jul 30, 2016 06:21 by Interface Page 11 of 12 pMD [facility] EMERGENCY RECORD NOTE: The MDRD equation has not been validated for use, with the elderly (over 70 years of age), women, patients with, serious comorbid condition or persons with extremes of body size, muscle, mass, or nutritional status. , *Glucose 292 - H mg/dL, Range (80-115), Calcium 9.3 mg/dL, Range (7.8-10.44). (17:10 RWAG) [place]jo: AWAT=KLEBER Cruz, Misbah CJEF=KLEBER Pate, Cady RWAG=MD Chao, Refugio &a-1R&a+25V*p+0X*m7058R*c202B*c15G*c2P*p-0X&a-25V&a+1R Name: Hayden Baptiste : 1950 M65 MedRec: [id number] AcctNum: [id number] Prepared: Hanane Jul 30, 2016 06:21 by Interface Page 12 of 12 pMD [facility] MEDICATION RECONCILIATION You were seen in the Emergency Department on: SunJul 14, 2016 KNOWN ALLERGIES acetaminophen (Unconfirmed): Reaction: Rash cinnamon Tylenol MEDICATIONS GIVEN WHILE IN THE EMERGENCY DEPARTMENT ketorolac injection (ketorolac tromethamine) - Dose: 30 milligram(s) : IV Push fentaNYL (PF) injection (fentanyl citrate/preservative free) - Dose: 100 microgram(s) : IV Push ondansetron HCl intravenous (ondansetron HCl) - Dose: 8 milligram(s) : IV Push sodium chloride 0.9 % intravenous (0.9 % sodium chloride) - Dose: 1 liter(s) : IV Fluid Infusion HOME MEDICATIONS CONTINUE PRESCRIBED aspirin : TABLET : Strength - 81 mg : ORAL Continue as prescribed Patient had been takin mg Oral once a day. atorvastatin : TABLET : Strength - 40 mg : ORAL Continue as prescribed Patient had been takin mg Oral once a day. lisinopril-hydrochlorothiazide : TABLET : Strength - 20 mg-12.5 mg : ORAL Continue as prescribed Patient had been takin tab(s) Oral once a day. NIFEdipine : TABLET, EXTENDED RELEASE : Strength - 60 mg : ORAL Continue as prescribed Patient had been takin mg Oral once a day. TRUJEO- DM MEDICATION Continue as prescribed Patient had been takin units Subcutaneous once a day. Notes from the emergency department Reviewed with patient PRESCRIPTIONS (2) &a-1R&a+25V*p+0X*p9579S*c202B*c15G*c2P*p-0X&a-25V&a+1R Name: Hayden Baptiste : 1950 M65 MedRec: [id number] AcctNum: [id number] Prepared: Hanane Jul 30, 2016 06:21 by Interface pMD [facility] MEDICATION RECONCILIATION Printed (2) Zofran ODT : TABLET,DISINTEGRATING : 8 mg : ORAL Quantity: 1, Unit: tab(s), Route: ORAL, Schedule: every 8 hours PRN, Dispense: 12 Unit: tab(s) &a-1R&a+25V*p+0X*g1961F*c202B*c15G*c2P*p-0X&a-25V&a+1R Name: Hayden Baptiste : 1950 M65 MedRec: [id number] AcctNum: [id number] Prepared: Hanane Jul 30, 2016 06:21 by Interface pMD [facility]
--- NOTE | 2016-07-14 18:52 | CT ---
CT ABDOMEN AND PELVIS WITHOUT IV CONTRAST 07/14/16 HISTORY: Cramping in right abdomen with vomiting. FINDINGS: Lack of intravenous contrast limits sensitivity for evaluation of the parenchymal organs. There are hypodense lesions seen in each kidney difficult to adequately characterize without IV contrast but t he majority appear to represent cysts. The largest hypodense cystic lesion in the superior pole left kidney measures 4.4 cm and does demonstrate fluid attenuation on this nonenhanced scan exam. The lung bases, liver, spleen, pancreas, bilateral adrenal glands and urinary bladder demonstrate a grossly normal nonenhanced CT appearance. There is colonic diverticulosis. The appendix is normal in caliber without CT findings to suggest appendicitis. The stomach is distended without fluid and particulate matter likely related to recent ingestion of a meal. Dense vascular calcification seen in the abdominal aorta and iliac arteries. Degenerative change noted in the spine. IMPRESSION: 1. Hypodense bilateral renal lesions, the majority of which most likely represent renal cysts. However, some of the lesions are too small to definitively characterize. 2. No renal or ureteral calculi are seen bilaterally, and there is no hydronephrosis. 3. No CT evidence of appendicitis. 4. Colonic diverticulosis. POS: ANGEL
[2016-07-14] MEDS ORDERED: Aspirin 325 MG TAB ONE (18:56)
[2016-07-14] MEDS ORDERED: Nitroglycerin 0.4 MG TAB 1 EACH ONE (18:56)
== END 2016-07-14 18:01 | disposition home or self-care (01) ==
LOC: MADERS 15:15
DX: R10.31 Right lower quadrant pain (principal); R11.2 Nausea with vomiting, unspecified; E11.9 Type 2 diabetes mellitus without complications; I10 Essential (primary) hypertension; I48.91 Unspecified atrial fibrillation; Z79.82 Long term (current) use of aspirin; Z79.899 Other long term (current) drug therapy
CPT/HCPCS: 74176; 80048; 82150; 82553; 83690; 84484; 85025; 93005; 96361; 96374; 96375; J1885; J2405; J3010; J7050

== ENCOUNTER 2017-02-12 08:18 | Outpatient (CLI) | payer MEDICARE ==
[2017-02-12 09:49] LABS: Anion Gap 17 mmol/L (10-20); BUN (Urea Nitrogen) 38 mg/dL (8.4-25.7); Calc. Creatinine Clearance 0 mL/min (70-130); Calcium 9.6 mg/dL (7.8-10.44); Carbon Dioxide 21 mmol/L (23-31); Chloride 111 mmol/L (98-107); Estimated GFR-MDRD 25; Glucose 101 mg/dL (80-115); Potassium 4.6 mmol/L (3.5-5.1); Sodium 144 mmol/L (136-145)
[2017-02-12 10:03] LABS: Bilirubin Negative (Negative); Blood, Urine Trace (Negative); Clarity Clear (Clear); Glucose, Urine (Dipstick) Negative (Negative); Leukocyte Negative (Negative); Nitrite Negative (Negative); Protein, Urine (Dipstick) 30 mg/dL (Neg-Trace); Urobilinogen 0.2 mg/dL (0.2-1.0); pH, Urine 5.5 (5.0-9.0)
== END 2017-02-12 08:19 | disposition home or self-care (01) ==
LOC: MADLAB 08:18
PROVIDERS: ATTEND Internal Medicine Nephrology
DX: I12.9 Hypertensive chronic kidney disease with stage 1 through stage 4 chronic kidney disease, or unspecified chronic kidney disease (principal); N18.3 Chronic kidney disease, stage 3 (moderate); E11.00 Type 2 diabetes mellitus with hyperosmolarity without nonketotic hyperglycemic-hyperosmolar coma (NKHHC); E11.22 Type 2 diabetes mellitus with diabetic chronic kidney disease; R80.9 Proteinuria, unspecified; E55.9 Vitamin D deficiency, unspecified
CPT/HCPCS: 36415; 80048; 81003

== ENCOUNTER 2021-02-03 22:31 | Emergency (ER) | payer MEDICARE ==
[2021-02-03 22:55] LABS: #Basophils 0.2 thou/uL (0.0-0.2); #Eosinphils 0.2 thou/uL (0.0-0.7); #Lymphocytes 1.5 thou/uL (1.20-3.40); %Basophils 1.2 % (0.0-1.0); %Eosinophils 1.2 % (0.0-10.0); %Lymphocytes 8.2 % (21.0-51.0); %Monocytes 5.7 % (0.0-10.0); %Neutrophils 83.7 % (42.0-75.0); Hemoglobin 8.1 g/dL (14.0-18.0); Mean Corpuscular HGB CONC 32.8 g/dL (32.0-36.0); Mean Corpuscular Volume 88.3 fL (78.0-98.0); Mean Platelet Volume 8.6 fL (7.4-10.4); Platelet Count 193 thou/uL (130-400); RBC Distribution Width 13.8 % (11.5-14.5); Red Blood Cell (RBC) Count 2.78 mill/uL (4.70-6.10); White Blood Cell (WBC) Count 17.9 thou/uL (4.8-10.8)
[2021-02-03 23:06] LABS: INR-International Normal Ratio 1.4; PTT 30.5 sec (22.9-36.1); Prothrombin Time 16.7 sec (12.0-14.7)
[2021-02-03 23:13] LABS: ALT (SGPT) 15 U/L (8-55); AST (SGOT) 13 U/L (5-34); Albumin 3.2 g/dL (3.4-4.8); Alkaline Phosphatase 111 U/L (40-110); Anion Gap 17 mmol/L (10-20); BUN (Urea Nitrogen) 97 mg/dL (8.4-25.7); Bilirubin, Total 0.5 mg/dL (0.2-1.2); Calc. Creatinine Clearance 0 mL/min (70-130); Calcium 8.8 mg/dL (7.8-10.44); Carbon Dioxide 13 mmol/L (23-31); Chloride 116 mmol/L (98-107); Globulin 2.3 g/dL (2.4-3.5); Glucose 179 mg/dL (80-115); Protein, Total 5.5 g/dL (5.8-8.1); Sodium 141 mmol/L (136-145)
[2021-02-03] MEDS ORDERED: Pantoprazole 40 MG VIAL ONE (23:18)
[2021-02-03] MEDS ORDERED: Sodium Chloride 0.9% 50 ML ONE (23:18)
[2021-02-04 00:31] LABS: #Basophils 0.1 thou/uL (0.0-0.2); #Eosinphils 0.1 thou/uL (0.0-0.7); #Lymphocytes 1.1 thou/uL (1.20-3.40); #Monocytes 0.7 thou/uL (0.11-0.59); #Neutrophils 14.1 thou/uL (1.40-6.50); %Basophils 0.5 % (0.0-1.0); %Eosinophils 0.5 % (0.0-10.0); %Lymphocytes 6.9 % (21.0-51.0); %Monocytes 4.3 % (0.0-10.0); %Neutrophils 87.8 % (42.0-75.0); Hemoglobin 7.9 g/dL (14.0-18.0); Mean Corpuscular HGB CONC 32.1 g/dL (32.0-36.0); Mean Corpuscular Hemoglobin 28.8 pg (27.0-31.0); Mean Corpuscular Volume 89.8 fL (78.0-98.0); Mean Platelet Volume 6.8 fL (7.4-10.4); Platelet Count 181 thou/uL (130-400); RBC Distribution Width 13.6 % (11.5-14.5); Red Blood Cell (RBC) Count 2.75 mill/uL (4.70-6.10); White Blood Cell (WBC) Count 16.1 thou/uL (4.8-10.8)
[2021-02-04 00:55] LABS: SARS-CoV-2 NAA Rapid Test Not Detected (NotDetected)
[2021-02-04] MEDS ORDERED: Sodium Chloride 0.9% 50 ML ONE (02:06)
[2021-02-04 03:15] LABS: Hemoglobin 7.8 g/dL (14.0-18.0)
[2021-02-04 06:10] LABS: Hemoglobin 7.1 g/dL (14.0-18.0)
[2021-02-04] MEDS ORDERED: Ondansetron PF 4 MG/2 ML Vial ONE (08:54)
[2021-02-04 09:20] LABS: Hemoglobin 7.3 g/dL (14.0-18.0)
[2021-02-04] MEDS ORDERED: Heparin 25,000 units/D5W 500 ML ONE (12:39)
[2021-02-04] MEDS ORDERED: Heparin 5,000 UNITS/ML VIAL ONE ×2 (12:48→12:49)
== END 2021-02-04 11:00 | disposition short-term general hospital (02) ==
LOC: MADERS 22:31
DX: K92.2 Gastrointestinal hemorrhage, unspecified (principal); R06.02 Shortness of breath; I25.10 Atherosclerotic heart disease of native coronary artery without angina pectoris; I48.91 Unspecified atrial fibrillation; E11.9 Type 2 diabetes mellitus without complications; I10 Essential (primary) hypertension; Z20.822 Contact with and (suspected) exposure to COVID-19; Z87.891 Personal history of nicotine dependence
CPT/HCPCS: 36430; 71045; 80053; 82274; 83880; 84484; 85014; 85018; 85025; 85610; 85730; 86850; 86900; 86901; 86920; 93005; P9016; U0002; 96365; 96366; 96375; C9113; J1644; J2405